=== PATIENT | female | born 1995 | race Two or more races ===

== ENCOUNTER 2021-08-26 00:37 | Emergency (ER) | payer OTHER, SELFPAY ==
[2021-08-26] MEDS ORDERED: Acetaminophen 500 MG TAB ONE (02:15)
[2021-08-26] MEDS ORDERED: Boostrix 0.5 ML (Tdap) VIAL ONE (02:15)
== END 2021-08-26 02:42 | disposition home or self-care (01) ==
LOC: ERS 00:37
DX: S91.311A Laceration without foreign body, right foot, initial encounter (principal); S00.01XA Abrasion of scalp, initial encounter; F17.290 Nicotine dependence, other tobacco product, uncomplicated; X58.XXXA Exposure to other specified factors, initial encounter
CPT/HCPCS: 90471; 90715; 99283

== ENCOUNTER 2022-03-07 19:36 | Emergency (ER) | payer OTHER, SELFPAY ==
[2022-03-07] MEDS ORDERED: HYDROcodone/Acetaminophen 10/325 mg Tablet ONE (20:34)
== END 2022-03-07 21:20 | disposition home or self-care (01) ==
LOC: ERS 19:36
DX: S62.316A Displaced fracture of base of fifth metacarpal bone, right hand, initial encounter for closed fracture (principal); W22.09XA Striking against other stationary object, initial encounter; F17.290 Nicotine dependence, other tobacco product, uncomplicated
CPT/HCPCS: 26605